=== PATIENT | male | born 1990 | race Caucasian/White ===

== ENCOUNTER → 2021-06-02 | Outpatient (CLI) | payer OTHER ==
--- NOTE | 2021-06-02 13:59 | KCIC ---
Exam Date: 06/02/2021 1:[address] SCREENING FOR CORONARY ARTERY Indication: Reason: Cardiovascular screening. / Spl. Instructions: / History: Grandfather hx. of hea rt disease.. TECHNIQUE: CT of the chest was performed without contrast per coronary calcium scoring. Refer to the worksheets for full details. One or more of the following dose reduction techniques were utilized: *Automated exposure control (AEC) *Adjustment of mA and/or kV according to patient size *Use of iterative reconstruction technique *CT scan done according to ALARA, or ALARA/IMAGE GENTLY FINDINGS: CT of the chest was performed for coronary calcium scoring. Refer to the worksheets for full details. Coronary calcium scoring is as follows: LMA: 0. LAD: 0. LCX: 0. RCA: 0. PDA: 0. Total: 0. This places the patient at the 0th percentile in age- and sex-matched subjects. The lungs are partially imaged. Visualized central airways are patent. There is no focal consolida tion, pleural effusion or pneumothorax. No lymphadenopathy is seen. Limited images of the upper abdomen demonstrate no focal abnormality. Degenerative changes are seen in the spine. IMPRESSION: Coronary calcium score 0. This places the patient at the 0th percentile in age- and sex-matched subje cts, and corresponds to no identifiable plaque and low cardiac risk. Electronically signed by: Luis Fernandez MD (06/02/2021 1:57 PM) [id number]
== END ==
LOC: KCIC CT 13:07
PROVIDERS: ATTEND Nurse Practitioner
DX: M47.814 Spondylosis without myelopathy or radiculopathy, thoracic region (principal); Z82.49 Family history of ischemic heart disease and other diseases of the circulatory system
CPT/HCPCS: 75571